=== PATIENT | female | born 1960 | race Caucasian/White ===

== ENCOUNTER → 2016-06-17 | Outpatient (CLI) | payer MEDICAID ==
[~2016-06-17] MED LIST: ACETAMINOPHEN &1 TA1 PO; ACETAMINOPHEN-O1 TAB PO; AMITRIPTYLINE H10 MG PO; AMOXICOT500 MG PO; AMOXIL500 MG PO; ASPIRIN LITE C325 MG PO; ATIVAN GENERIC0.5 MG PO; AUGMENTIN 875-1 EACH PO; BACTRIM DS 8001 TAB PO; BUPROPION HCL75 M1 PO; CIPRO 500MG TA500 MG PO; CIPROFLOXACIN500 MG PO; CLONAZEPAM 1MG T1 MG PO; CLOPIDOGREL75 M2 PO; DARVOCET-N6 EACH/PAK PO; DIAZEPAM10 MG PO; DULERA1 AR1 IH; DULERA1 ARO IH; ESCITALOPRAM20 MG NG; ESTRADIOL1 MG PO; FLAGYL 500MG.500 MG PO; FLAGYL500 MG PO; FLEXERIL10 MG PO; GABAPENTIN300 M1 PO; LORTAB 5/500 501 TAB PO; LORZONE375 MG PO; MEDROL 4MG. DOSE4 MG PO; METOPROLOL SUC100 M1 PO; METOPROLOL25 MG PO; Monodox100 MG PO; NAPROSYN 500MG500 MG PO; NICOTINE PATCH;21 MG TD; PENICILLIN V P500 MG PO; PERCOCET 10 MG1 EACH PO; PHENERGAN 25MG.25 M1 PO; PHENERGAN W/CO473 ML PO; PLAVIX75 MG PO; PRAVACHOL40 MG PO; PREDNISONE 20MG20 MG PO; PREDNISONE20 MG PO; PREDNISONE50 MG PO; PROMETHAZINE D473 ML PO; PROVENTIL0.09 MG/A1 IH; SEPTRA DS 800 M1 TAB PO; SYMBICORT1 AE1 IH; TESSALON PERLE100 MG PO; TRAMADOL 50MG T50 M1 PO; TRAMADOL50 M1 PO; ULTRAM 50 MG TA50 MG PO; VENTOLIN H0.09 MG/AC IH; VICODIN 5/500 T1 TAB PO; VICODIN 7.5/501 EACH PO; VICOPROFEN 7.51 TAB PO; VOLTAREN75 MG PO; ZANTAC 150150 MG PO; ZITHROMAX Z-PA250 M2 PO; ZOFRAN4 MG PO; [UNRECOGNIZED DRUG - OTHER] PO
== END ==
LOC: LAB 16:56
DX: N39.0 Urinary tract infection, site not specified (principal)

== ENCOUNTER → 2016-08-11 | Outpatient (CLI) | payer MEDICAID ==
--- NOTE | 2016-08-11 15:41 | CARDIOVASCULAR REPORT ---
"Cerebrovascular Exam Indications: 780.4 Vertigo. 780.2 Syncope and collapse. IMPRESSIONS 1. The bilateral vertebral arteries are patent with normal antegrade flow. 2. Study suggests less than 20% stenosis involving the right internal carotid artery and the left internal carotid artery. Carotid duplex study. Complete study and Doppler flow study including spectral analysis, color and sutherland scale imaging. Height: Height: 167.6cm. Height: 66in. Weight: Weight: 63.5kg. Weight: 139.7lb. Body mass index: BMI: 22.6kg/m^2. Body surface area: BSA: 1.72m^2. Location: Vascular laboratory. Patient status: Outpatient. Tables: Arterial flow: + +--------+--------+ |Location |V sys |V ed | + +--------+--------+ |Right CCA - proximal|125cm/s |39.3cm/s| + +--------+--------+ |Right CCA - distal |95.9cm/s|37.7cm/s| + +--------+--------+ |Right ECA |79cm/s |--------| + +--------+--------+ |Right ICA - proximal|68.4cm/s|24.3cm/s| + +--------+--------+ |Right ICA - mid |86cm/s |38.6cm/s| + +--------+--------+ |Right ICA - distal |138cm/s |53.8cm/s| + +--------+--------+ |Right vertebral |46.7cm/s|--------| + +--------+--------+ |Left CCA - proximal |83.6cm/s|32.1cm/s| + +--------+--------+ |Left CCA - distal |87.4cm/s|33.9cm/s| + +--------+--------+ |Left ECA |135cm/s |--------| + +--------+--------+ |Left ICA - proximal |85.4cm/s|31.9cm/s| + +--------+--------+ |Left ICA - mid |135cm/s |51.7cm/s| + +--------+--------+ |Left ICA - distal |131cm/s |51cm/s | + +--------+--------+ |Left vertebral |46.3cm/s|--------| + +--------+--------+ Velocity ratios: + + + + + + | |Right, V sys|Right, V ed|Left, V sys|Left, V ed| + + + + + + |Max ICA/dist CCA|1.44 |1.43 |1.54 |1.53 | + + + + + + (Report amended ) Electronically signed by: Angus Crawford [id number]"
== END ==
LOC: RT 08-02 08:00
DX: R55 Syncope and collapse (principal)

== ENCOUNTER 2016-09-26 09:30 | Outpatient (CLI) | payer MEDICAID ==
[2016-09-26 13:45] VITALS: BP 103/57
[2016-09-27] MEDS ORDERED: TIZANIDINE HCL 44 MG NG (13:43)
== END 2016-09-26 14:00 | disposition home or self-care (01) ==
LOC: COP 09:30
DX: N39.0 Urinary tract infection, site not specified (principal); Z16.12 Extended spectrum beta lactamase (ESBL) resistance
CPT/HCPCS: J1335

== ENCOUNTER 2016-09-28 12:00 | Outpatient (CLI) | payer MEDICAID ==
[~2016-09-28 12:00] MED LIST changes: +TIZANIDINE HCL 44 MG NG
[2016-09-28 12:17] VITALS: BP 119/74
== END 2016-09-28 12:30 | disposition home or self-care (01) ==
LOC: COP 12:00
DX: N39.0 Urinary tract infection, site not specified (principal); Z16.12 Extended spectrum beta lactamase (ESBL) resistance
CPT/HCPCS: J1335

== ENCOUNTER 2017-02-14 12:18 | Emergency (ER) | payer MEDICAID ==
[~2017-02-14] VITALS: Ht 170.2 cm; Wt 59.9 kg
[~2017-02-14 12:18] MED LIST changes: +ZITHROMAX Z PA250 MG PO
--- OUTSIDE RECORDS SUMMARY | 2017-02-14 12:23 | External Medical Summary Rpt | CCD ---
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 Name Role Phone Nilo Nelson MD, Unavailable Unavailable Nilo RIDER MD, Unavailable Unavailable KAIA Woodard Unavailable Unavailable FER BANKS, Maged Woodard III, MD Purpose Continuity of Care Document - 06-06-2012 through 2016 Problems Code Diagnosis DOS Provider Status 305.1 305.1 03-02-2013 [place] TOBACCO USE [facility] DISORDER [facility] 787.01 787.01 03-02-2013 [place] NAUSEA WITH [facility] VOMITING [facility] 787.91 787.91 03-02-2013 [place] DIARRHEA [facility] 493.90 493.90 11-12-2012 [place] ASTHMA, [facility] UNSPECIFIED [facility] 496 496 CHR 11-12-2012 [place] AIRWAY [facility] OBSTRUCT [facility] NEC 782.7 782.7 11-12-2012 [place] SPONTANEOUS [facility] 338.18 338.18 06-06-2012 [place] OTHER ACUTE [facility] POSTOPERATI VE PAIN 511.9 511.9 06-06-2012 [place] PLEURAL [facility] NOS J18.9 PNEUMONIA, UNSPECIFIED ORGANISM J32.9 CHRONIC SINUSITIS, UNSPECIFIED J40 BRONCHITIS, NOT SPECIFIED ACUTE OR CHRONIC J44.1 CHRONIC OBSTRUCTIVE PULMONARY DISEASE W (ACUTE) EXACERBATIO N J44.9 CHRONIC OBSTRUCTIVE PULMONARY DISEASE, UNSPECIFIED K57.92 DVTRCLI OF INTEST, PART UNSP, 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 9% SO DASH TI ON Sa 63 11 0 No li 80 -3 ne 70 0- Lo 10 20 ng Fl 07 13 er us 5 h Ac 10 ti ML ve Sy ri ng e ON 00 11 0 No DA 64 -3 NS 16 0- Lo ET 08 20 ng RO 02 13 er N 5 HC Ac L ti 4 ve MG /2 ML AL Vital Signs 03-02-2013 14:36 Name Value Interpretat Reference Comment ion Range Body 98.3 [degF] Temperature BP 59 mm[Hg] Diastolic BP Systolic 103 mm[Hg] Heart 83 /min Rate/Pulse O2% 98 % Respiratory 20 /min Rate 03-02-2013 13:40 Name Value Interpretat Reference Comment ion Range BP 52 mm[Hg] Diastolic BP Systolic 99 mm[Hg] Heart 82 /min Rate/Pulse O2% 98 % Respiratory 20 /min Rate 02-19-2013 23:01 Name Value Interpretat Reference Comment ion Range BP 62 mm[Hg] Diastolic BP Systolic 102 mm[Hg] Heart 72 /min Rate/Pulse O2% 98 % Respiratory 18 /min Rate 02-19-2013 22:51 Name Value Interpretat Reference Comment ion Range BP 65 mm[Hg] Diastolic BP Systolic 110 mm[Hg] Heart 70 /min Rate/Pulse O2% 95 % Respiratory 20 /min Rate 11-12-2012 15:51 Name Value Interpretat Reference Comment ion Range BP 61 mm[Hg] Diastolic BP Systolic 103 mm[Hg] Heart 81 /min Rate/Pulse O2% 99 % Respiratory 18 /min Rate 11-12-2012 15:50 Name Value Interpretat Reference Comment ion Range BP 61 mm[Hg] Diastolic BP Systolic 103 mm[Hg] Heart 81 /min Rate/Pulse O2% 99 % Respiratory 18 /min Rate 06-06-2012 14:45 Name Value Interpretat Reference Comment ion Range Body 98.3 [degF] Temperature BP 69 mm[Hg] Diastolic BP Systolic 121 mm[Hg] Heart 69 /min Rate/Pulse O2% 99 % Respiratory 18 /min Rate 06-06-2012 13:36 Name Value Interpretat Reference Comment ion Range Body 98.3 [degF] Temperature BP 66 mm[Hg] Diastolic BP Systolic 118 mm[Hg] Heart 72 /min Rate/Pulse O2% 97 % Respiratory 18 /min Rate Results Labs Lab Lab Date Result Refere Interp Status Commen Order Detail nces retati t Range on CHLAMYDIA AND GONORRHEA TESTING (11-11-2014 11:30) Chlamyd NEGATIV complet ia 015 E ed trachom 11:30 atis rRNA [Presen ce] in Unspeci fied specime n by Probe & target amplifi cation method Neisser NEGATIV complet ia 015 E ed gonorrh 11:30 oeae rRNA [Presen ce] in Unspeci fied specime n by Probe & target amplifi cation method CHLAMYDIA AND GONORRHEA TESTING (11-11-2014 11:30) COLLECT A. complet OR 015 MANNIE, ed 11:30 RN ETHNICI WHITE, complet TY 015 NON-HIS ed 11:30 PANIC KIT complet EXPIRAT 015 6 ed ION 11:30 DATE SYMPTOM NO complet S 015 ed 11:30 REASON VOLUNTE complet FOR 015 ER/MEDI ed REQUEST 11:30 MEAGAN PROBLEM SPECIME URINE complet N 015 ed SOURCE 11:30 PREGNAN NO complet T 015 ed 11:30 CHART 404-08- complet NUMBER 015 [id number] ed 11:30 Chlamyd Pending complet ia 015 ed trachom 11:30 atis rRNA [Presen ce] in Unspeci fied specime n by Probe & target amplifi cation method Neisser Pending complet ia 015 ed gonorrh 11:30 oeae rRNA [Presen ce] in Unspeci fied specime n by Probe & target amplifi cation method URINALYSIS/COMPLETE (03-02-2013 13:59) URINE DK YELLOW complet COLOR 013 YELLOW ed 13:59 URINE SL CLEAR complet APPEARA 013 CLOUDY ed NCE 13:59 URINE NEGATIV NEG complet GLUCOSE 013 E ed - 13:59 DIPSTIC K URINE NEGATIV NEG complet BILIRUB 013 E ed IN - 13:59 DIPSTIC K URINE 03-02-2 NEGATIV NEG complet KETONE 013 E mg/dL ed 13:59 URINE 03-02-2 Greater 1.005-1 complet SPECIFI 013 than .030 ed C 13:59 or GRAVITY equal to 1.030 URINE 03-02-2 1+ NEG complet BLOOD 013 ed 13:59 URINE 03-02-2 6.0 UNK 5.0-8.5 complet PH 013 ed 13:59 URINE 03-02-2 NEGATIV NEG complet PROTEIN 013 E mg/dL ed - 13:59 DIPSTIC K URINE 03-02-2 0.2 NEG complet UROBILI 013 E.U./dL ed NOGEN - 13:59 DIPSTIC K URINE 03-02-2 NEGATIV NEG complet NITRATE 013 E ed - 13:59 DIPSTIC K URINE 03-02-2 NEGATIV NEG complet LEUK 013 E ed ESTERAS 13:59 E URINE 03-02-2 3-5 0 complet RBC 013 rbc/hpf ed 13:59 URINE 03-02-2 OCC O complet WBC 013 wbc/hpf ed 13:59 URINE 03-02-2 5-10 0-5 complet SQUAMOU 013 #/hpf ed S CELLS 13:59 URINE 03-02-2 2+ O complet BACTERI 013 ed A 13:59 URINE 03-02-2 3+ OCC complet MUCUS 013 ed 13:59 COMPREHENSIVE METABOLIC PANEL (03-02-2013 13:20) Glucose 125 74-106 complet 013 mg/dL ed Bld-mCn 13:20 c BUN 25 7-18 complet Bld-mCn 013 mg/dL ed c 13:20 Creat 1.1 0.6-1.0 complet SerPl-m 013 mg/dL ed Cnc 13:20 Creat 57 50-200 complet Cl 013 ML/MIN ed predict 13:20 ed SerPl C-G-vRa te GFR/BSA 53 59- complet .pred 013 ML/MIN ed SerPl 13:20 Schwart z-vRate Sodium 140 136-145 complet SerPl-s 013 mmoL/L ed Cnc 13:20 Potassi 3.9 3.5-5.1 complet um 013 mmoL/L ed SerPl-s 13:20 Cnc Chlorid 03-02-2 105 98-107 complet e 013 mmoL/L ed SerPl-s 13:20 Cnc CO2 30-2 24 21.0-32 complet SerPl-s 013 mmoL/L .0 ed Cnc 13:20 Calcium 30-2 8.7 8.5-10. complet 013 mg/dL 1 ed SerPl-m 13:20 Cnc Prot 30-2 7.7 6.4-8.2 complet SerPl-m 013 gm/dL ed Cnc 13:20 Albumin 03-02-2 4.0 3.4-5.0 complet 013 gm/dL ed SerPl-m 13:20 Cnc Globuli 03-02-2 3.7 1.3-3.2 complet n 013 gm/dL ed Ser-mCn 13:20 c Albumin 03-02-2 1.1 UNK 1.1-1.8 complet /Glob 013 ed SerPl-m 13:20 Rto Bilirub 03-02-2 0.4 0.2-1.0 complet 013 mg/dL ed SerPl-m 13:20 Cnc AST 03-02-2 17 U/L 15-37 complet SerPl-c 013 ed Cnc 13:20 ALT 03-02-2 32 U/L 30-65 complet SerPl-c 013 ed Cnc 13:20 ALP 03-02-2 123 U/L 50-136 complet SerPl-c 013 ed Cnc 13:20 CBC with AUTO DIFF (03-02-2013 13:20) WBC # 30-2 14.7 4.8-10. complet Bld 013 K/MM3 8 ed Auto 13:20 RBC # 30-2 4.45 4.2-5.4 complet Bld 013 M/mm3 ed Auto 13:20 Hgb 03-02-2 14.6 12.2-16 complet Bld-mCn 013 g/dL .2 ed c 13:20 Hct Fr 03-02-2 42.5 % 37.0-47 complet Bld 013 .0 ed 13:20 MCV RBC 03-02-2 95.4 fl 82.2-97 complet 013 .8 ed 13:20 MCH RBC 03-02-2 32.9 pg 27-31.2 complet Qn 013 ed Auto 13:20 MEAN 11-30-2 34.5 31.8-35 complet CORPUSC 013 g/dl .4 ed ULAR 13:20 HGB CONC RDW RBC 11-30-2 14.8 % 11.5-17 complet Auto 013 .5 ed 13:20 Platele 11-30-2 468 142-424 complet t Bld 013 K/mm3 ed Ql 13:20 Manual MEAN 11-30-2 7.2 fl 7.4-10. complet PLATELE 013 4 ed T 13:20 VOLUME Granulo 11-30-2 95.2 % 37.0-80 complet cytes 013 .0 ed Fr Bld 13:20 Auto LYMPH % 11-30-2 2.6 % 10-50.0 complet 013 ed 13:20 Monocyt 11-30-2 1.7 % 1.7-9.3 complet es Fr 013 ed Bld 13:20 Auto Eosinop 11-30-2 0.5 % 0.1-12. complet hil Fr 013 0 ed Bld 13:20 Auto Basophi 11-30-2 0.0 % 0.1-2.0 complet ls Fr 013 ed Bld 13:20 Auto Granulo 11-30-2 14.0 1.8-7.8 complet cytes # 013 K/mm3 ed Bld 13:20 Auto Lymphoc 11-30-2 0.4 0.7-4.5 complet ytes Fr 013 K/mm3 ed Bld 13:20 Auto Monocyt 11-30-2 0.3 0.1-1.0 complet es # 013 K/mm3 ed Bld 13:20 Auto Eosinop 11-30-2 0.1 0.0-0.4 complet hil # 013 K/mm3 ed Bld 13:20 Auto Basophi 11-30-2 0.0 0-0.2 complet ls # 013 K/MM3 ed Bld 13:20 Auto BASIC METABOLIC PANEL (06-06-2012 13:50) Glucose 06-2 101 74-106 complet 013 mg/dL ed Bld-mCn 13:50 c BUN 06-06-2 9 mg/dL 7-18 complet Bld-mCn 013 ed c 13:50 Creat 06-06-2 1.0 0.6-1.0 complet SerPl-m 013 mg/dL ed Cnc 13:50 ESTIMAT 06-06-2 61 50-200 complet ED 013 ML/MIN ed CREATIN 13:50 INE CLEARAN CE GFR 59 59- complet (ESTIMA 013 ML/MIN ed KRISTI) 13:50 Sodium 2 140 136-145 complet SerPl-s 013 mmoL/L ed Cnc 13:50 Potassi 4.3 3.5-5.1 complet um 013 mmoL/L ed SerPl-s 13:50 Cnc Chlorid 105 98-107 complet e 013 mmoL/L ed SerPl-s 13:50 Cnc CO2 29 21.0-32 complet SerPl-s 013 mmoL/L .0 ed Cnc 13:50 Calcium 2 9.0 8.5-10. complet 013 mg/dL 1 ed SerPl-m 13:50 Cnc CBC with AUTO DIFF (06-06-2012 13:50) WBC # -06-2 6.2 4.8-10. complet Bld 013 K/MM3 8 ed Auto 13:50 RBC # 06-06-2 4.07 4.2-5.4 complet Bld 013 M/mm3 ed Auto 13:50 Hgb 06-06-2 13.4 12.2-16 complet Bld-mCn 013 g/dL .2 ed c 13:50 Hct Fr 40.6 % 37.0-47 complet Bld 013 .0 ed 13:50 MCV RBC 06-06-2 99.6 fl 82.2-97 complet 013 .8 ed 13:50 MCH RBC 06-06-2 33.0 pg 27-31.2 complet Qn 013 ed Auto 13:50 MEAN 06-06-2 33.1 31.8-35 complet CORPUSC 013 g/dl .4 ed ULAR 13:50 HGB CONC RDW RBC 06-06-2 13.6 % 11.5-17 complet Auto 013 .5 ed 13:50 Platele 06-06-2 512 142-424 complet t Bld 013 K/mm3 ed Ql 13:50 Manual MEAN 2 6.7 fl 7.4-10. complet PLATELE 013 4 ed T 13:50 VOLUME Granulo 06-06-2 65.7 % 37.0-80 complet cytes 013 .0 ed Fr Bld 13:50 Auto LYMPH % 03-06-2 27.4 % 10-50.0 complet 013 ed 13:50 Monocyt 03-06-2 4.1 % 1.7-9.3 complet es Fr 013 ed Bld 13:50 Auto Eosinop 03-06-2 2.4 % 0.1-12. complet hil Fr 013 0 ed Bld 13:50 Auto Basophi 03-06-2 0.4 % 0.1-2.0 complet ls Fr 013 ed Bld 13:50 Auto Granulo 03-06-2 4.1 1.8-7.8 complet cytes # 013 K/mm3 ed Bld 13:50 Auto Lymphoc 03-06-2 1.7 0.7-4.5 complet ytes Fr 013 K/mm3 ed Bld 13:50 Auto Monocyt 03-06-2 0.3 0.1-1.0 complet es # 013 K/mm3 ed Bld 13:50 Auto Eosinop 03-06-2 0.2 0.0-0.4 complet hil # 013 K/mm3 ed Bld 13:50 Auto Basophi 03-06-2 0.0 0-0.2 complet ls # 013 K/MM3 ed Bld 13:50 Auto Encounters Encounter Start End Date Code Location Performer Type Date Emergency ANDRES Woodard (ER) 3 13:19 3 14:40 [facility] Maged E. Emergency ANDRES Woodard (ER) 3 22:21 3 23:01 [facility] Maged E. Emergency ANDRES RIDER (ER) 3 15:08 3 15:51 [facility] MOHAMED Emergency ANDRES Nelson MD (ER) 3 13:21 3 14:45 [facility]
--- OUTSIDE RECORDS SUMMARY | 2017-02-14 12:23 | External Medical Summary Rpt | CCD ---
Author Author , OWEN Organization OWEN Address Unknown Phone [email or web address] Care Team Providers Care Forestry Fire Aid Name Role Phone Nilo Nelson MD, Unavailable Unavailable Nilo RIDER MD, Unavailable Unavailable KAIA Woodard Unavailable Unavailable FER BANKS, Maged Woodard III, MD Purpose Continuity of Care Document - 06-06-2012 through 2016 Problems Code Diagnosis DOS Provider Status 305.1 305.1 03-02-2013 [place] TOBACCO USE [facility] DISORDER [facility] 787.01 787.01 03-02-2013 [place] NAUSEA WITH [facility] VOMITING [facility] 787.91 787.91 03-02-2013 [place] DIARRHEA [facility] 493.90 493.90 11-12-2012 [place] ASTHMA, [facility] UNSPECIFIED [facility] 496 496 CHR 11-12-2012 [place] AIRWAY [facility] OBSTRUCT [facility] NEC 782.7 782.7 11-12-2012 [place] SPONTANEOUS [facility] 338.18 338.18 06-06-2012 [place] OTHER ACUTE [facility] POSTOPERATI VE PAIN 511.9 511.9 06-06-2012 [place] PLEURAL [facility] NOS J18.9 PNEUMONIA, UNSPECIFIED [...] ANDRES Woodard (ER) 3 13:19 3 14:40 [facility] Maged E. Emergency ANDRES Woodard (ER) 3 22:21 3 23:01 [facility] Maged E. Emergency ANDRES RIDER (ER) 3 15:08 3 15:51 [facility] MOHAMED Emergency ANDRES Nelson MD (ER) 3 13:21 3 14:[address] [facility]
--- OUTSIDE RECORDS SUMMARY | 2017-02-14 12:23 | External Medical Summary Rpt | CCD ---
Author Author [employer] Organization [employer] Address Unknown Phone Unavailable Purpose Continuity of Care Document - through 2016
--- OUTSIDE RECORDS SUMMARY | 2017-02-14 12:24 | External Medical Summary Rpt ---
Author Author OWEN Ravi, OWEN [employer] Organization OWEN [employer] Address Unknown Phone Unavailable Results Urea nitrogen [Mass/volume] in Serum or Plasma Observa Value Referen Units Interpr Notes Date tion ce etation Range Urea 7 - 18 mg/dL Normal No Sep 20 nitrogen informati 2016 2:24 [Mass/vol on in PM ume] in source Serum or data Plasma CREATININE Observa Value Referen Units Interpr Notes Date tion ce etation Range Creatinin 0.55 - mg/dL Normal No Sep 20 e 1.02 informati 2016 2:24 [Mass/vol on in PM ume] in source Serum or data Plasma Estimated 59- ML/MIN Low REFERENCE Sep 20 RANGE: 2016 2:24 glomerula >60 PM r ML/MIN/1. filtratio 73 SQUARE n rate METERSIf (GF this patient is -A merican, then multiply theresult by 1.210. CHLAMYDIA AND GONORRHEA TESTING Observa Value Referen Units Interpr Notes Date ti ce etation Range COLLECT A. No No No No Nov 11 OR MANNIE, informa informa informa informa 2015 RN tion in tion in tion in tion in 11:30 source source source source AM data data data data ETHNICI WHITE, No No No No Nov 11 TY NON-HIS informa informa informa informa 2015 PANIC tion in tion in tion in tion in 11:30 source source source source AM data data data data KIT No No No No Nov 11 EXPIRAT 6 informa informa informa informa 2015 ION tion in tion in tion in tion in 11:30 DATE source source source source AM data data data data SYMPTOM NO No No No No Nov 11 S informa informa informa informa 2015 tion in tion in tion in tion in 11:30 source source source source AM data data data data REASON VOLUNTE No No No No Nov 11 FOR ER/MEDI informa informa informa informa 2015 REQUEST MEAGAN tion in tion in tion in tion in 11:30 PROBLEM source source source source AM data data data data SPECIME URINE No No No No Nov 11 N informa informa informa informa 2015 SOURCE tion in tion in tion in tion in 11:30 source source source source AM data data data data PREGNAN NO No No No No Nov 11 T informa informa informa informa 2015 tion in tion in tion in tion in 11:30 source source source source AM data data data data CHART 404-08- No No No No Nov 11 NUMBER [id number] informa informa informa informa 2015 tion in tion in tion in tion in 11:30 source source source source AM data data data data Chlamyd NEGATIV No No No NEGATIV Nov 11 ia E informa informa informa E 2015 trachom tion in tion in tion in RESULT= 11:30 atis source source source WITHIN AM rRNA data data data NORMAL [Presen ce] in LIMITSP Unspeci OSITIVE fied specime RESULT= n by Probe & ABNORMA target LEQUIVO MEAGAN amplifi RESULT= cation method INDETER MINATEU NSATISF ACTORY RESULT= INVALID Neisser NEGATIV No No No NEGATIV Nov 11 ia E informa informa informa E 2015 gonorrh tion in tion in tion in RESULT= 11:30 oeae source source source WITHIN AM rRNA data data data NORMAL [Presen ce] in LIMITSP Unspeci OSITIVE fied specime RESULT= n by Probe & ABNORMA target LEQUIVO MEAGAN amplifi RESULT= cation method INDETER MINATEU NSATISF ACTORY RESULT= INVALID THE APTIMA COMBO 2 ASSAY IS NOT INTENDE D FOR THE EVALUAT ION OF SUSPECT EDSEXUA L ABUSE OR FOR OTHER MEDICO- LEGAL INDICAT IONS. FOR THOSE PATIENT S FORWHOM A FALSE POSITIV E RESULT MAY HAVE ADVERSE PSYCHO- SOCIAL IMPACT, [facility] RETESTI NG.\.br \This report contain s patient informa tion that must be protect ed in accorda nce with the Health Insuran ce Portabi lity and Account ability Act. CHLAMYDIA AND GONORRHEA TESTING Observa Value Referen Units Interpr Notes Date tion ce etation Range COLLECT A. No No No No Nov 11 OR MANNIE, informa informa informa informa 2015 RN tion in tion in tion in tion in 11:30 source source source source AM data data data data ETHNICI WHITE, No No No No Nov 11 TY NON-HIS informa informa informa informa 2015 PANIC tion in tion in tion in tion in 11:30 source source source source AM data data data data KIT No No No No Nov 11 EXPIRAT 6 informa informa informa informa 2015 ION tion in tion in tion in tion in 11:30 DATE source source source source AM data data data data SYMPTOM NO No No No No Nov 11 S informa informa informa informa 2015 tion in tion in tion in tion in 11:30 source source source source AM data data data data REASON VOLUNTE No No No No Nov 11 FOR ER/MEDI informa informa informa informa 2015 REQUEST MEAGAN tion in tion in tion in tion in 11:30 PROBLEM source source source source AM data data data data SPECIME URINE No No No No Nov 11 N informa informa informa informa 2015 SOURCE tion in tion in tion in tion in 11:30 source source source source AM data data data data PREGNAN NO No No No No Nov 11 T informa informa informa informa 2015 tion in tion in tion in tion in 11:30 source source source source AM data data data data CHART 404-08- No No No No Nov 11 NUMBER [id number] informa informa informa informa 2015 tion in tion in tion in tion in 11:30 source source source source AM data data data data Chlamyd Pending No No No No Nov 11 ia informa informa informa informa 2015 trachom tion in tion in tion in tion in 11:30 atis source source source source AM rRNA data data data data [Presen ce] in Unspeci fied specime n by Probe & target amplifi cation method Neisser Pending No No No \.br\Nov 11 ia informa informa informa is 2015 gonorrh tion in tion in tion in report 11:30 oeae source source source contain AM rRNA data data data s [Presen patient ce] in Unspeci informa fied tion specime that n by must be Probe & target protect ed in amplifi accorda cation nce method with the Health Insuran ce Portabi lity and Account ability Act.
--- OUTSIDE RECORDS SUMMARY | 2017-02-14 12:24 | External Medical Summary Rpt | CCD ---
Author Author , OWEN WEAVER Address Unknown Phone [email or web address] Immunization Name Date Rout CVX Reac Dose Comm Prov Is Faci e tion ent ider Refu lity Give sed n Infl 09-1 Intr 0.5 Hist GSHA No GSHA uenz 8-20 amus mL oric NE NE a 17 cula al Quad r Info rmat W/Pr ion es - Sour ce Unsp ecif ied
--- OUTSIDE RECORDS SUMMARY | 2017-02-14 12:24 | External Medical Summary Rpt ---
Author Author OWEN Ravi, OWEN [employer] Organization [employer] Address Unknown Phone Unavailable [...] MAY HAVE ADVERSE PSYCHO- SOCIAL IMPACT, [facility] MM[facility]DS RETESTI NG.\.br \This report contain s [...]
--- OUTSIDE RECORDS SUMMARY | 2017-02-14 12:24 | External Medical Summary Rpt | CCD ---
Author Author , OWEN WEAVER Address Unknown Phone [email or web address] Immunization Name Date Rout CVX Reac Dose Comm Prov Is Faci e tion ent ider Refu lity Give sed n Infl 09-1 Intr 0.5 Hist GSHA No GSHA uenz 8-20 amus mL oric NE NE a 17 cula al Quad r Info rmat W/Pr ion es - Sour ce Unsp ecif ied
--- NOTE | 2017-02-14 12:54 | Urgent Treatment Center Report ---
History of Present Issue Date/Time Seen by Provider 02/14/17 1242 Visit Reason Pt arrived:Wheelchair Presenting Problem:INCRESED SOA, CONGESTION X4 DAYS Location if Accident: Onset of symptoms date/time:/ or onset unknown for:MEDICAL HX UNKNOWN Have you (or family members/close friends) recently traveled outside the [place]? N If Yes, where/when: Have you had exposure to infectious disease within the past month? TB? Other? Specify: c/o increasing SOA, productive cough, green sputum. Started w/ fever, aches, chills, V/D one week ago. Dx Flu + , 2-3 days after symptoms started at PCP office, Dr. Nelson's. "Too late for tamiflu". Cough and chest congestion has worsened. Although fever, aches, chills have improved, cough, chest congestion, SOA has not. Hx of COPD. symbicort and ventolin BID every day. Denies feeling the need to increase use of ventolin but reports SOA is worse then typical "as I can typically walk and get around without being short of breath". + tobacco abuse. Source patient Exam Limitations no limitations ALLERGIES Coded Allergies: cefdinir (I-ITCHING 06/05/16) Home Medications Active Scripts Azithromycin (Zithromycin (Z-ROSLYN) 250MG Tab) 250 MG PO DAILY #6 TAB Prov: 11/11/16 Prednisone (Prednisone 20MG) 20 MG PO BID #10 TAB Prov: 11/11/16 Reported Medications Pravastatin Sodium (Pravachol) 40 MG PO QHS #30 Gabapentin 800 MG PO QID #90 CAPSULE Escitalopram Oxalate 20 MG NG DAILY #30 TAB BUDESONIDE/FORMOTEROL FUMARATE (Symbicort 160-4.5 Mcg Inhaler) 1 PUFF IH BID TIZANIDINE HCL (Tizanidine Hcl 4 Mg Tablet) 4 MG NG BID ALBUTEROL (Ventolin Hfa) 1 PUFF IH PRN CLOPIDOGREL BISULFATE (Clopidogrel) 75 MG PO DAILY #30 OXYCODONE HCL/ACETAMINOPHEN (Oxycodone-Acetaminophen 5-325) 1 TAB PO TID #90 METOPROLOL SUCCINATE XL (Metoprolol Succinate) 100 MG PO BID History Medical History General CAD? No Angina: No ID: Yes Hypertension? No Hyperlipidemia? Yes CHF? No DVT? No PE? No COPD? Yes Asthma? Yes Anemia? No GERD? No Gastric ulcers? Yes GI Bleed? No Hernia? No Thyroid Problems? No Hypothyroidism? No CVA? No Seizures? No Diabetes? No UTI? No Stones? No GB Disease: No Nephritic Syndrome? No Asplenia? No Hepatitis? No Sickle Cell Disease? No Arthritis? Yes Migraines? No Cataracts? No Glaucoma? No MRSA? No HIV? No TB? No Anxiety? No Depression? Yes Cancer? No More? Yes Additional hx: FIBROMYALGIA, CHRONIC BRONCHITIS Immunization HX DT/Tetanus 5-10 Years Ago Flu 2013-15FSN Pneumonia Received In Past Surgical Hx Previous Surgery?Y LUNG SURGERY [facility] [employer] PRINCIPAL SURGERY Hysterect LEFT LUNG BIOPSY ABD. ANURESYM EXCLUDER STENT IN L GROIN INFECTIOUS MASS FAWN LUNG Family History Family HX Diabetes Yes CAD Yes Hypertension Yes Hyperlipidemia Yes Cancer Yes TB No Social History Smoking Hx Smoker: Current Every Day Smoker Tobacco: Yes Type Cigarettes Packs/day < 1 Pack Alcohol Alcohol: No Review of Systems All Other Systems Reviewed and Negative Constitutional see HPI, malaise Eyes denies drainage ENT see HPI, ear pain (right), nose discharge, nose congestion. denies: ear discharge, throat pain. Respiratory see HPI Cardiovascular denies chest pain, denies palpitations Gastrointestinal denies no symptoms reported ("all resolved") Musculoskeletal denies joint pain Skin denies rash Psychiatric/Neurological denies headache Physical Exam Vital Signs Vital Signs Date Time Temp Pulse Resp B/P Pulse O2 O2 Flow FiO2 Ox Delivery Rate 02/14 1227 98.0 95 22 118/63 90 General Appearance no apparent distress, seated in w/c talking to mother on the phone without any difficulty Eye Exam - bilateral eye normal exam Ear, Nose, Throat normal ENT inspection (x/ mild nasal congestion) Neck non-tender Respiratory Status Yes: trachea midline, chest symmetrical, non productive cough. No: respiratory distress, use of accessory muscles, pain on inspiration, pain on expiration. Lung Sounds anterior: decreased breath sounds. posterior: decreased breath sounds. bilateral: decreased breath sounds, wheezing (faint end expiratry throughout). Cardiovascular regular rate/rhythm, no peripheral edema, no murmur Neurologic alert, oriented x 3 Mental status normal mood/affect Skin normal color, warm/dry Lymphatic no adenopathy Medical Decision Making LABS/Meds/Orders Pt receiving controlled substance in ED? No Results/Orders Current Medication Orders Sig/Licha Start time Last Medication Dose Route Stop Time Status Admin Methylprednisolone 125 MG ONCE ONE 02/14 1330 DC 02/14 Sodium Succinate IM 02/14 1331 1328 Methylprednisolone 0 .STK-MED ONE 02/14 1328 DC Sodium Succinate .ROUTE Orders Procedure Date/time Status CHEST(2 VIEWS-NOT PORTABLE) 02/14 1248 Active XRAY/CT/US XRAY/CT/US XRAY chest XR interpretation by reviewed by me (w/ Dr. Iyer, ER ) Xray Results can't exclude RLL bronchopneumonia Departure Departure Time of Disposition 1317 Disposition DC Home or Self Care(routine) Clinical Impression Primary Impression: Bronchopneumonia Condition STABLE Referrals Omar BANKS,Alonso Stringer (Family) Follow up in 1-2 days. Seek treatment immediately for new or worsening symptoms Patient Instructions DI for Pneumonia -- Adult Additional Instructions * STOP SMOKING!!!! * start antibiotic today. Be sure to complete entire prescription even if feeling better. * Monitor Temp. Tylenol every 4 hours as needed no more then 5 times a day or 4000mg in 24 hours and/or ibuprofen every 6 hours as needed no more then 3200mg in 24 hours (as long as your primary care doctor has told you that it is ok to take both) for fever/aches/pain. ER if fever no less than 101 despite tylenol and ibuprofen * humidifier/vaporizer/hot steamy shower * COntinue both inhalers. Remember you can increase ventolin to every 4 hours as needed for shortness of breath, wheezing. * Mucinex during the day for your cough and cough suppressant only at night. Be sure to drink lots of water. Insurance may not cover a prescription of mucinex. Might be cheaper to get 400mg tablets and take 2 tablets morning, midday and evening all with lots of water. * Start steroid tomorrow since you had injection in clinic. Helps with inflammation therefore, cough and wheezing. Follow directions on package. Rvwd side effects. Pt reports they have taken them before. Discharge Counseling Counseled pt/family regarding diagnosis, test results, medications/RX, home care, follow up needs Prescriptions Current Visit Scripts Azithromycin (Zithromycin (Z-ROSLYN) 250MG Tab) 250 MG PO DAILY #6 TAB TAKE TWO (2) TABLETS ON DAY 1, THEN ONE (1) TABLET DAY #2 THRU #5 Prednisone (Prednisone 20MG) 20 MG PO BID #10 TAB at 2408
[2017-02-14] MEDS ORDERED: PREDNISONE 20MG20 MG PO (13:21)
[2017-02-14] MEDS ORDERED: ZITHROMAX Z PA250 MG PO (13:21)
[2017-02-14 14:04] VITALS: BP 120/78
--- NOTE | 2017-02-14 15:06 | RADIOLOGY REPORT PS360 ---
CHEST(2 VIEWS-NOT PORTABLE) HISTORY: Shortness of air, COPD flu + last week, hx COPD, + tobacco abuse, inc. SOA ORDERING PHYSICIAN: ANDREW FISHER APRN PATIENT AGE: 56 years COMPARISON: 11/11/2016 FINDINGS: The cardiomediastinal silhouette and pulmonary vascularity are within normal limits. Hyperinflation with hyperlucency consistent with obstructive chronic bronchitis. Postsurgical changes left upper lobe. No lobar consolidation or collapse. No effusions.. No acute bony abnormalities. IMPRESSION: COPD, postsurgical change, no change with no acute finding
== END 2017-02-14 14:04 | disposition home or self-care (01) ==
LOC: UTC 12:18
DX: J18.0 Bronchopneumonia, unspecified organism (principal); Z72.0 Tobacco use; Z88.1 Allergy status to other antibiotic agents; E78.5 Hyperlipidemia, unspecified; J44.9 Chronic obstructive pulmonary disease, unspecified

== ENCOUNTER → 2017-02-15 | Outpatient (CLI) | payer MEDICAID | LOC: LAB 13:26 | DX: N39.0 Urinary tract infection, site not specified (principal) ==